=== PATIENT | male | born 1975 | race Two or more races ===

== ENCOUNTER 2020-05-02 10:26 | Emergency (ER) | payer OTHER ==
[~2020-05-02] VITALS: Ht 175.3 cm; Wt 81.6 kg
[2020-05-02 12:07] VITALS: BP 135/75
[2020-05-02] MEDS ORDERED: HYDROcodone-ACET 7.5/325MG TAB PO ONE (12:45)
[2020-05-02] MEDS ORDERED: KETOROLAC TROMETH 60MG/2ML VIAL IM ONE (12:45)
== END 2020-05-02 12:56 | disposition home or self-care (01) ==
LOC: ER 10:26
DX: S46.911A Strain of unspecified muscle, fascia and tendon at shoulder and upper arm level, right arm, initial encounter (principal); M51.37 Other intervertebral disc degeneration, lumbosacral region; M54.16 Radiculopathy, lumbar region; W18.39XA Other fall on same level, initial encounter; Y93.89 Activity, other specified; Y92.89 Other specified places as the place of occurrence of the external cause; Y99.8 Other external cause status
CPT/HCPCS: 72100; 73030; 96372; 99284; J1885